=== PATIENT | female | born 1995 ===

== ENCOUNTER 2017-10-28 12:17 | Emergency (ER) | payer MEDICAID, OTHER ==
[2017-10-28 12:24] VITALS: RESP 18; TEMP 98.8; O2SAT 100
--- NOTE | 2017-10-28 12:52 | ED PDOC ---
Arrival/HPI - General Chief Complaint: Syncope Time Seen by Provider: 10/28/17 12:21 Historian: Patient, Family - History of Present Illness Time/Duration: Prior to Arrival Symptom Onset: Sudden Symptom Course: Resolved Associated Symptoms (Text): 10/28/17 12:50 Patient reports that she was sitting watching television and she began to get very hot and became diaphoretic. She got up to turn the air conditioner on and after doing so then began to get nauseous. She felt very dizzy and lightheaded and lowered herself to the ground. She reports that she was crawling into the kitchen to get some help when she passed out and found herself lying on the floor. No tongue biting. No loss of bowel or bladder control. No chest pain palpitations or dyspnea. No numbness tingling or paresthesias. No focal weakness. No headache. No abdominal pain or vomiting. She feels fine at this time. LMP is approximately 5 weeks ago. She took the morning-after pill after unprotected sex at that time and states that her period is now late. Past Medical History - Infectious Disease Hx of Infectious Diseases: None - Tetanus Immunization Tetanus Immunization: Unknown - Psychiatric Hx Depression: No Hx Emotional Abuse: No Hx Physical Abuse: No Hx Substance Use: No - Anesthesia Hx Anesthesia: No Hx Anesthesia Reactions: No Hx Malignant Hyperthermia: No - Suicidal Assessment Feels Threatened In Home Enviroment: No Family/Social History - Physician Review Nursing Documentation Reviewed: Yes Family/Social History: Unknown Family HX Smoking Status: Never Smoked Hx Alcohol Use: No Hx Substance Use: No Hx Substance Use Treatment: No Allergies/Home Meds Allergies/Adverse Reactions: Allergies No Known Allergies Allergy (Verified 10/28/17 12:21) Home Medications: Home Meds Medication Instructions Recorded Confirmed No Known Home Med 10/28/17 10/28/17 Review of Systems - Physician Review All systems were reviewed & negative as marked: Yes - Review of Systems Constitutional: Normal Respiratory: Normal. absent: SOB, Cough, Wheezing Cardiovascular: Normal, Syncope. absent: Chest Pain, Palpitations Gastrointestinal: Nausea. absent: Abdominal Pain, Constipation, Diarrhea, Vomiting Genitourinary Female: absent: Dysuria, Frequency, Hematuria Neurological: Dizziness. absent: Headache, Focal Weakness, Gait Changes, Speech Changes, Facial Droop, Disequilibrium, Seizure Physical Exam Vital Signs Temp Pulse Resp BP Pulse Ox 10/28/17 12:24 98.8 F 63 18 99/61 L 100 Temperature: Afebrile Blood Pressure: Normal Pulse: Regular Respiratory Rate: Normal Appearance: Positive for: Well-Appearing, Non-Toxic, Comfortable Pain Distress: None Mental Status: Positive for: Alert and Oriented X 3 - Systems Exam Head: Present: Atraumatic, Normocephalic Pupils: Present: PERRL Extroacular Muscles: Present: EOMI Conjunctiva: Present: Normal Ears: Present: NORMAL TM, Normal Canal. No: Erythema Mouth: Present: Moist Mucous Membranes Pharnyx: No: ERYTHEMA, EXUDATE, TONSILS ENLARGED Neck: Present: Normal Range of Motion. No: Meningeal Signs Respiratory/Chest: Present: Clear to Auscultation, Good Air Exchange. No: Respiratory Distress, Accessory Muscle Use Cardiovascular: Present: Regular Rate and Rhythm, Normal S1, S2. No: Murmurs Abdomen: No: Tenderness, Distention, Peritoneal Signs, Rebound, Guarding Upper Extremity: Present: Normal Inspection. No: Cyanosis, Edema Lower Extremity: Present: Normal Inspection. No: Edema Neurological: Present: GCS=15, CN II-XII Intact, Speech Normal, Motor Func Grossly Intact, Normal Sensory Function, Normal Cerebellar Funct, Gait Normal Skin: Present: Warm, Dry, Normal Color. No: Rashes Psychiatric: Present: Alert, Oriented x 3, Normal Insight, Normal Concentration Medical Decision Making ED Course and Treatment: 10/28/17 13:26 EKG shows normal sinus rhythm rate approximately 65 with no acute changes. PROCEDURE: CT HEAD WITHOUT CONTRAST. Creator : Leonidas Rios MD Report Date : 10/28/2017 14:28:03 IMPRESSION: No acute intracranial hemorrhage. - Lab Interpretations Lab Results: 10/28/17 13:31 10/28/17 13:31 Lab Results 10/28/17 13:57: Urine Opiates Screen Negative, Urine Methadone Screen Negative, Ur Barbiturates Screen Negative, Ur Phencyclidine Scrn Negative, Ur Amphetamines Screen Negative, U Benzodiazepines Scrn Negative, U Oth Cocaine Metabols Negative, U Cannabinoids Screen Negative 10/28/17 13:57: Urine Color Yellow, Urine Appearance Clear, Urine pH 7.0, Ur Specific [place] 1.015, Urine Protein Trace H, Urine Glucose (UA) Negative, Urine Ketones Negative, Urine Blood Negative, Urine Nitrate Negative, Urine Bilirubin Negative, Urine Urobilinogen 0.2, Ur Leukocyte Esterase Negative, Urine RBC Pending, Urine WBC Pending 10/28/17 13:31: Alcohol, Quantitative < 10 10/28/17 13:31: Sodium 141, Potassium 3.6, Chloride 103, Carbon Dioxide 26, Anion Gap 15, BUN 6 L, Creatinine 0.6 L, Est GFR ( Amer) > 60, Est GFR ( Non-Af Amer) > 60, Random Glucose 90, Calcium 9.1, Magnesium 2.1, Total Bilirubin 0.5, AST 22, ALT 24, Alkaline Phosphatase 46, Lactate Dehydrogenase 330 L, Total Creatine Kinase 36, Troponin I < 0.01, Total Protein 6.8, Albumin 4.2, Globulin 2.5, Albumin/Globulin Ratio 1.7 10/28/17 13:31: WBC 5.2, RBC 3.82, Hgb 9.5 L, Hct 29.9 L, MCV 78.3 L, MCH 24.9 L , MCHC 31.8, RDW 13.8, Plt Count 194, MPV 10.5, Gran % 68.4 H, Lymph % (Auto) 21.6 L, [place] % (Auto) 7.9 H, Eos % (Auto) 1.7, Baso % (Auto) 0.4, Gran # 3.57, Lymph # (Auto) 1.1 L, [place] # (Auto) 0.4, Eos # (Auto) 0.1, Baso # (Auto) 0.02 10/28/17 13:27: POC Glucose (mg/dL) 93 - RAD Interpretation Radiology Orders: 10/28/17 12:53 HEAD W/O CONTRAST [CT] Stat CT scan of the head as read by the radiologist shows no acute findings. Program Evaluation Consultant: Radiologist - Medication Orders Current Medication Orders: Discontinued Medications Sodium Chloride (Sodium Chloride 0.9%) 500 mls @ 1,000 mls/hr IV .Q30M STA Stop: 10/28/17 13:22 Last Admin: 10/28/17 13:31 Dose: 1,000 mls/hr eMAR Start Stop Document 10/28/17 13:31 OCS (Rec: 10/28/17 13:31 OCS [id number]) Intravenous Solution Start Date 10/28/17 Start Time 13:31 End Date 10/28/17 End time 14:01 Total Infusion Time 30 Disposition/Present on Arrival - Present on Arrival Any Indicators Present on Arrival: No History of DVT/PE: No History of Uncontrolled Diabetes: No Urinary Catheter: No History of Decub. Ulcer: No History Surgical Site Infection Following: None - Disposition Have Diagnosis and Disposition been Completed?: Yes Diagnosis: Anemia, Syncope Disposition: HOME/ ROUTINE Disposition Time: 14:49 Patient Plan: Discharge Patient Problems: Current Active Problems Problem Status Onset Anemia Acute Syncope Acute Condition: GOOD Discharge Instructions (ExitCare): Syncope (ED), Syncope (Fainting), Normocytic Normochromic Anemia Referrals: Tash Jiang MD [Primary Care Provider] - Follow up with primary Forms: [employer] (Malay)
[2017-10-28] MEDS ORDERED: Sodium Chloride 0.9% 500 ML IV STA (12:53)
[2017-10-28 13:40] LABS: BASO # 0.02 K/mm3 (0.0-2.0); BASO % 0.4 % (0.0-3.0); EOS # 0.1 (0.0-0.7); EOS % 1.7 % (1.5-5.0); GRAN # 3.57 (1.4-6.5); GRAN % 68.4 % (50.0-68.0); HEMOGLOBIN 9.5 g/dL (12.0-16.0); LYMPH # 1.1 (1.2-3.4); LYMPH % 21.6 % (22.0-35.0); MEAN CELL VOLUME 78.3 fl (80.0-105.0); MEAN CORPUSCULAR HEMOGLOBIN 24.9 pg (25.0-35.0); MEAN CORPUSCULAR HGB CONC 31.8 g/dl (31.0-37.0); MEAN PLATELET VOLUME 10.5 fl (7.0-11.0); MONO # 0.4 (0.1-0.6); MONO % 7.9 % (1.0-6.0); RBC 3.82 10^6/uL (3.5-6.1); RED CELL DISTRIBUTION WIDTH 13.8 % (11.5-14.5); WHITE BLOOD COUNT 5.2 10^3/ul (4.5-11.0)
[2017-10-28 13:49] LABS: ALB/GLOB RATIO 1.7 (1.1-1.8); ALBUMIN 4.2 g/dL (3.0-4.8); ALT/SGPT 24 U/L (7-56); AST/SGOT 22 U/L (14-36); BLOOD UREA NITROGEN 6 mg/dL (7-21); CALCIUM 9.1 mg/dL (8.4-10.5); GFR AFRICAN-AMERICAN > 60; GFR NON-AFRICAN AMERICAN > 60
[2017-10-28 14:00] LABS: TROPONIN I < 0.01 ng/mL
[2017-10-28 14:10] LABS: URINE BILIRUBIN NEGATIVE (NEGATIVE); URINE BLOOD NEGATIVE (NEGATIVE); URINE GLUCOSE (UA) NEGATIVE (NEGATIVE); URINE LEUKOCYTE ESTERASE NEGATIVE Leu/uL (NEGATIVE); URINE PROTEIN TRACE mg/dL (<30 mg/dL); URINE UROBILINOGEN 0.2 E.U./dL (<1 E.U./dL)
[2017-10-28 14:11] LABS: URINE APPEARANCE CLEAR (CLEAR); URINE COLOR YELLOW (YELLOW)
[2017-10-28 14:27] LABS: BARBITURATES, UR NEGATIVE (NEGATIVE); BENZODIAZEPINES, UR NEGATIVE (NEGATIVE); OPIATES, UR NEGATIVE (NEGATIVE); PHENCYCLIDINE, UR NEGATIVE (NEGATIVE)
--- NOTE | 2017-10-28 14:31 | CT ---
PROCEDURE: CT HEAD WITHOUT CONTRAST. HISTORY: syncope COMPARISON: None available. TECHNIQUE: Axial computed tomography images were obtained through the head/brain without intravenous contrast. Radiation dose: Total exam DLP = 797.32 mGy-cm. This CT exam was performed using one or more of the following dose reduction techniques: Automated exposure control, adjustment of the mA and/or kV according to patient size, and/or use of iterative reconstruction technique. FINDINGS: HEMORRHAGE: No intracranial hemorrhage. BRAIN: No mass effect or edema. No atrophy or chronic microvascular ischemic changes. VENTRICLES: Unremarkable. No hydrocephalus. CALVARIUM: Unremarkable. PARANASAL SINUSES: Unremarkable as visualized. No significant inflammatory changes. MASTOID AIR CELLS: Unremarkable as visualized. No inflammatory changes. OTHER FINDINGS: None. IMPRESSION: No acute intracranial hemorrhage.
[2017-10-28 14:52] LABS: URINE RBC 0 - 2 /hpf (0-2); URINE WBC 0 - 2 /hpf (0-6)
[2017-10-28 14:53] LABS: URINE BACTERIA SMALL (NEG)
[2017-10-28 15:14] VITALS: BP 96/52; PULSE 73
--- NOTE | 2017-10-28 16:23 | CARD ---
APPROVED REPORT EKG Measurement Heart [id number] <Conclusion> Normal sinus rhythm Normal ECG
== END 2017-10-28 15:06 | disposition home or self-care (01) ==
LOC: ED 12:17
DX: R55 Syncope and collapse (principal); D64.9 Anemia, unspecified
CPT/HCPCS: 70450; 80053; 80320; 80324; 80345; 80346; 80349; 80353; 80358; 80361; 81001; 82550; 82948; 83615; 83735; 83992; 84484; 85025; 93005; 99285; J7040